=== PATIENT | male | born 1960 | race Caucasian/White ===

== ENCOUNTER → 2020-09-22 | Outpatient (CLI) | payer OTHER ==
[~2020-09-22] MED LIST: ALFUZOSIN HCL E10 MG PO; AVODART0.5 MG PO; BRILINTA 90 MG90 MG PO; COZAAR 50MG TAB50 MG PO; CRESTOR 10 MG T10 MG PO; CRESTOR10 MG PO; ECOTRIN81 MG PO; FINASTERIDE1 MG PO; GLUCOPHAGE1000 MG PO; LOPRESSOR 25 MG25 MG PO; LOSARTAN POTASS25 MG PO; NITROGLYCERIN0.4 MG SL; ONE DAILY1 EACH PO; RANEXA500 MG PO; VITAMIN B-121000 MCG PO
== END ==
LOC: HEART 5 09-10 09:00
DX: I49.3 Ventricular premature depolarization (principal)